=== PATIENT | male | born 1960 | race Caucasian/White ===

== ENCOUNTER 2018-03-26 13:09 | Day surgery (SDC) | payer BC ==
[2018-03-26] MEDS ORDERED: MIDAZOLAM 1 MG/ML 2 ML INJ ×2 (16:35)
[2018-03-26] MEDS ORDERED: FENTAnyl 50 MCG/ML VIAL (16:35)
== END 2018-03-26 16:43 | disposition home or self-care (01) ==
LOC: GIL 13:09
DX: Z12.11 Encounter for screening for malignant neoplasm of colon (principal); D12.2 Benign neoplasm of ascending colon; K64.0 First degree hemorrhoids; I10 Essential (primary) hypertension; E78.00 Pure hypercholesterolemia, unspecified
CPT/HCPCS: 45380; 88305